=== PATIENT | female | born 1940 | race Caucasian/White ===

== ENCOUNTER → 2020-08-27 | Outpatient (CLI) | payer OTHER ==
[~2020-08-27] MED LIST: BACTRIM DS TAB1 EACH PO; CATAPRES 0.1MG0.1 MG PO; ECOTRIN81 MG PO; HYDRALAZINE HCL25 MG PO; IMDUR ER TAB 3030 MG PO; PYRIDIUM100 MG PO; PYRIDIUM200 MG PO; REGLAN10 MG PO; SYNTHROID75 MCG PO; TOPROL XL50 MG PO; ZOFRAN ODT4 MG PO
== END ==
LOC: LAB 08:40
PROVIDERS: Nurse Practitioner
DX: M54.9 Dorsalgia, unspecified (principal); R00.2 Palpitations
CPT/HCPCS: 36415; 80053; 84436; 84443

== ENCOUNTER → 2021-04-15 | Outpatient (CLI) | payer OTHER ==
[2021-04-15 09:04] LABS: HEMOGLOBIN 13.7 gm/dl (12.3-15.3); RED BLOOD COUNT 4.2 M/UL (4.00-5.10); WHITE BLOOD COUNT 6.5 K/UL (4.5-11.0)
== END ==
LOC: MAMO 02-06 09:00
PROVIDERS: Family Medicine
DX: Z12.31 Encounter for screening mammogram for malignant neoplasm of breast (principal); E78.5 Hyperlipidemia, unspecified; I10 Essential (primary) hypertension; E03.9 Hypothyroidism, unspecified
CPT/HCPCS: 36415; 77063; 77067; 80053; 80061; 84443; 85027